=== PATIENT | male | born 1960 | race Caucasian/White ===

== ENCOUNTER 2025-05-05 16:31 | Emergency (ER) | payer MEDICARE ==
[~2025-05-05] VITALS: Ht 177.8 cm; Wt 93.2 kg
[2025-05-05 16:46] VITALS: TEMP 97.9
[2025-05-05 17:08] LABS: BASO # 0.1 10^3/uL (0.0-0.2); BASO % 0.5 % (0.0-1.0); EOS # 0.1 10^3/uL (0.0-0.5); EOS % 0.6 % (0.0-3.0); LYMPH # 1.5 10^3/uL (1.5-5.0); LYMPH % 15.8 % (24.0-44.0); MONO # 0.7 10^3/uL (0.0-0.8); MONO % 7.7 % (2.0-8.0); NEUTROPHILS # 7.0 10^3/uL (1.5-8.5); NEUTROPHILS % 75.2 % (36.0-66.0); PLATELET COUNT, AUTOMATED 253 10^3/uL (150-450)
[2025-05-05 17:18] LABS: INR 0.97
[2025-05-05 17:35] LABS: CPK CREATINE PHOSPHOKINASE 113 U/L (46-171); MAGNESIUM LEVEL 1.6 MG/DL (1.8-2.4); PHOSPHORUS LEVEL 3.9 MG/DL (2.4-5.1)
[2025-05-05 17:36] LABS: ALT/SGPT 87 U/L (7.0-40); AST/SGOT 87 U/L (<34); CALCIUM LEVEL 9.3 MG/DL (8.3-10.6); CARBON DIOXIDE LEVEL 26 MMOL/L (20-31); CHLORIDE LEVEL 98 MMOL/L (98-107); CK-MB VALUE MASS 1.2 NG/ML (<3.6); CREATININE FOR GFR 0.66 MG/DL (0.70-1.30); GLOMERULAR FILTRATION RATE > 90.0 (>49); MB/CK RELATIVE INDEX 1.06 (< OR =4); POTASSIUM SERUM 4.1 MMOL/L (3.5-5.1); SODIUM LEVEL 143 MMOL/L (136-145)
[2025-05-05 17:40] LABS: FREE T4 1.01 NG/DL (0.89-1.76)
[2025-05-05 17:44] LABS: ETHYL ALCOHOL (ETHANOL) 0.053 % (0.000-0.010)
[2025-05-05] MEDS ORDERED: ASPI81CH33 PO (17:46)
[2025-05-05 18:25] LABS: CK-MB VALUE MASS 2.2 NG/ML (<3.6)
[2025-05-05 18:27] LABS: CPK CREATINE PHOSPHOKINASE 118 U/L (46-171); MB/CK RELATIVE INDEX 1.86 (< OR =4)
[2025-05-05] MEDS ORDERED: HOME MED LIST COMPLETE! XX SCH (18:35)
[2025-05-05] MEDS: MAG SULF 1GM/100ML (MAG RUN) 1 GM in IV 1 EA IV ONE (18:44)
[2025-05-05] MEDS: OXAZEPAM 15MG CAP PO ONE (18:44)
[2025-05-05] MEDS: MULTIVITAMIN -ADULT INJECTION 10 ML, THIAMINE INJection 100 MG, FOLIC ACID 1 MG in NS (... IV ONE (19:53)
[2025-05-05] MEDS ORDERED: OXAZ30CA2 PO (21:06)
[2025-05-05 21:30] VITALS: BP 168/85; O2SAT 95
== END 2025-05-05 22:06 | disposition home or self-care (01) ==
LOC: EDBD 16:31 → M ED 16:31
DX: F10.130 Alcohol abuse with withdrawal, uncomplicated (principal); R00.0 Tachycardia, unspecified; Z79.899 Other long term (current) drug therapy
CPT/HCPCS: 70450; 71046; 80048; 80076; 82077; 82550; 82553; 83735; 84100; 84439; 84443; 84484; 85025; 85610; 85730; 93005; 93041; 94760; 96374; 96375; 99285; J1808; J2060; J3411; J3475